=== PATIENT | female | born 1965 | race American Indian/Alaskan Native ===

== ENCOUNTER 2017-02-08 00:07 | Emergency (ER) | payer MEDICARE, OTHER ==
[2017-02-08] MEDS ORDERED: Morphine 4 MG/ML Syringe IVPUSH ONE (00:56)
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
[2017-02-08] MEDS ORDERED: Morphine 4 MG/ML Syringe ONE (00:58)
[2017-02-08] MEDS ORDERED: Acetaminophen/oxyCODONE 325-5 MG Tab PO ONE (01:02)
[2017-02-08 01:09] LABS: SODIUM,NA 137 mmol/L (135-145)
[2017-02-08 01:10] LABS: CHLORIDE,CL 96 mmol/L (101-111)
[2017-02-08 02:10] VITALS: BP 150/55
--- NOTE | 2017-02-08 14:16 | EKG ---
02/08/2017 - ERAN GUNTER I reviewed the EKG and agree with the machine's reading. [facility] /[id number]
== END 2017-02-08 02:36 ==
LOC: DL.ED 00:07
DX: S06.5X0A Traumatic subdural hemorrhage without loss of consciousness, initial encounter (principal); S42.021A Displaced fracture of shaft of right clavicle, initial encounter for closed fracture; S22.42XA Multiple fractures of ribs, left side, initial encounter for closed fracture; S00.83XA Contusion of other part of head, initial encounter; S30.810A Abrasion of lower back and pelvis, initial encounter; I13.0 Hypertensive heart and chronic kidney disease with heart failure and stage 1 through stage 4 chronic kidney disease, or unspecified chronic kidney disease; N18.9 Chronic kidney disease, unspecified; I50.9 Heart failure, unspecified; I25.10 Atherosclerotic heart disease of native coronary artery without angina pectoris; E78.00 Pure hypercholesterolemia, unspecified; E11.40 Type 2 diabetes mellitus with diabetic neuropathy, unspecified; E66.9 Obesity, unspecified; E11.22 Type 2 diabetes mellitus with diabetic chronic kidney disease; X58.XXXA Exposure to other specified factors, initial encounter; V89.2XXA Person injured in unspecified motor-vehicle accident, traffic, initial encounter; Z79.82 Long term (current) use of aspirin; Z79.4 Long term (current) use of insulin; Z86.2 Personal history of diseases of the blood and blood-forming organs and certain disorders involving the immune mechanism
CPT/HCPCS: 36415; 70450; 71010; 71250; 72125; 73000; 74176; 80053; 82150; 82553; 83690; 83880; 84484; 85025; 85610; 93005; 99285; A9270

== ENCOUNTER 2017-02-15 10:38 | Emergency (ER) | payer MEDICAID, MEDICARE ==
[2017-02-15 11:50] VITALS: BP 116/53
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
== END 2017-02-15 13:21 | disposition home or self-care (01) ==
LOC: DL.ED 10:38
DX: I13.2 Hypertensive heart and chronic kidney disease with heart failure and with stage 5 chronic kidney disease, or end stage renal disease (principal); E11.22 Type 2 diabetes mellitus with diabetic chronic kidney disease; N18.6 End stage renal disease; D63.1 Anemia in chronic kidney disease; I50.9 Heart failure, unspecified; N18.9 Chronic kidney disease, unspecified; E11.40 Type 2 diabetes mellitus with diabetic neuropathy, unspecified; E78.00 Pure hypercholesterolemia, unspecified; I25.10 Atherosclerotic heart disease of native coronary artery without angina pectoris; E11.21 Type 2 diabetes mellitus with diabetic nephropathy; Z79.82 Long term (current) use of aspirin; Z79.899 Other long term (current) drug therapy; Z79.4 Long term (current) use of insulin; Z95.1 Presence of aortocoronary bypass graft
CPT/HCPCS: 36415; 74176; 80053; 85025; 99284

== ENCOUNTER 2017-08-30 11:27 | Emergency (ER) | payer MEDICARE, OTHER ==
[2017-08-30 11:37] VITALS: BP 157/60
--- NOTE | 2017-08-30 11:42 | EDM.PDOC ---
ED HPI GENERAL MEDICAL PROBLEM - General Chief Complaint: Respiratory Problem Stated Complaint: CAME FROM DIALYSIS DOESNT FEEL GOOD, COUGH Time Seen by Provider: 08/30/17 11:42 Source of Information: Reports: Patient, Old Records, RN, RN Notes Reviewed History Limitations: Reports: No Limitations - History of Present Illness INITIAL COMMENTS - FREE TEXT/NARRATIVE: Pt c/o dry cough x1 week. Denies fever, chills, headache, edema, orthopnea, chest pain, shortness of breath, or wheezing. Admits to mild sore throat that developed after several days of coughing. Pt had a full run of dialysis this morning, and states that in dialysis the checked and she does not have fluid overload, was afebrile, and had clear lung sounds. Pt states that she otherwise feels well, but just isn't getting over this annoying cough. 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: Other Medication(s) (over the counter cough syrup) Headache Pain Score (Numeric/FACES): 5 - Related Data Allergies Allergy/AdvReac Type Severity Reaction Status Date / Time No Known Allergies Allergy Verified 08/30/17 11:34 Home Meds: Home Meds Aspirin [Adult Low Dose Aspirin EC] 81 mg PO DAILY 12/15/14 [History] Calcium Acetate [PhosLo] 2,001 mg PO TIDMEALS 12/16/14 [History] Cholecalciferol (Vitamin D3) [Vitamin D] 1,000 units PO DAILY 12/16/14 [History] Insulin Aspart [NovoLOG] 5 units INJECT TIDMEALS 12/16/14 [History] Lisinopril 20 mg PO DAILY 12/16/14 [History] Metoprolol Succinate 150 mg PO DAILY 12/16/14 [History] atorvaSTATin [Lipitor] 20 mg PO DAILY 12/16/14 [History] Acetaminophen [Acetaminophen Extra Strength] 500 mg PO Q6H PRN 05/04/16 [History ] B Complex & C No.20/Folic Acid [Nephrocaps Softgel] 1 mg PO DAILY 05/04/16 [ History] Furosemide 160 mg PO BID 05/04/16 [History] Isosorbide Mononitrate [Imdur] 60 mg PO BID 05/04/16 [History] NIFEdipine [Adalat cc] 60 mg PO DAILY 05/04/16 [History] hydrALAZINE [Apresoline] 150 mg PO BID 05/04/16 [History] Past Medical History HEENT History: Reports: None, Cataract, Impaired Vision Cardiovascular History: Reports: CAD, Heart Failure, High Cholesterol, Hypertension, PTCA, PVD, SOB on Exertion, Stents Respiratory History: Reports: None Gastrointestinal History: Reports: None Genitourinary History: Reports: Chronic Renal Insuffiency, Dialysis, Diabetic Nephropathy, Renal Disease 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 Musculoskeletal History: Reports: None Neurological History: Reports: Neuropathy, Diabetic Psychiatric History: Reports: None Endocrine/Metabolic History: Reports: Diabetes, Type II, IDDM, Obesity/BMI 30+ Hematologic History: Reports: Anemia Dermatologic History: Reports: None - Past Surgical History HEENT Surgical History: Reports: Cataract Surgery Cardiovascular Surgical History: Reports: None, Coronary Artery Bypass, Coronary Artery Stent Social & Family History - Family History Family Medical History: Noncontributory HEENT: Reports: Glaucoma Cardiac: Reports: Afib, Blood Clots/VTE/DVT, Bypass, CAD, Cardiomyopathy, Heart Failure, High Cholesterol, Hypertension, [place], PVD/COD, SOB on Exertion Respiratory: Reports: Asthma, COPD GI: Reports: Cholelithiasis : Reports: Diabetic Nephropathy, Dialysis, Renal Calculus, Renal Disease/ Insufficiency Neurological: Reports: CVA Endocrine/Metabolic: Reports: Diabetes, type II, Obesity/MBI 30+ Hematologic: Reports: Anemia - Tobacco Use Smoking Status *Q: Former Smoker Years of Tobacco use: 3 Packs/Tins Daily: 1 Used Tobacco, but Quit: Yes Month/Year Tobacco Last Used: 01/2016 Second Hand Smoke Exposure: No - Caffeine Use Caffeine Use: Reports: Coffee, Soda - Recreational Drug Use Recreational Drug Use: No - Living Situation & Occupation Living situation: Reports: Occupation: Disabled ED ROS GENERAL - Review of Systems Review Of Systems: ROS reveals no pertinent complaints other than HPI. ED EXAM, GENERAL - Physical Exam Exam: See Below Exam Limited By: No Limitations General Appearance: Alert, WD/WN, No Apparent Distress, Obese, Other ( chronically ill appearing) Eye Exam: Bilateral Eye: Normal Inspection Ears: Normal External Exam, Normal Canal, Hearing Grossly Normal, Normal TMs Nose: Normal Inspection, Normal Mucosa, No Blood Throat/Mouth: Normal Inspection, Normal Lips, Normal Oropharynx, Normal Voice, No Airway Compromise Head: Atraumatic, Normocephalic Neck: Normal Inspection, Supple, Non-Tender, Full Range of Motion. No: Lymphadenopathy (L), Lymphadenopathy (R) Respiratory/Chest: No Respiratory Distress, Lungs Clear, Normal Breath Sounds, No Accessory Muscle Use, Chest Non-Tender, Other (dry cough). No: Crackles, Rales, Rhonchi, Wheezing, Stridor, Splinting Cardiovascular: Regular Rate, Rhythm, No Edema, No JVD GI/Abdominal: Other (benign obese abdomen) Back Exam: Normal Inspection Extremities: Normal Inspection, Non-Tender, No Pedal Edema Neurological: Alert, Oriented, CN II-XII Intact, Normal Cognition, Normal Gait, No Motor/Sensory Deficits Psychiatric: Normal Affect, Normal Mood Skin Exam: Warm, Dry, Intact, Normal Color, No Rash Course - Vital Signs Last Recorded V/S: Last Vital Signs Temp 36.4 C 08/30/17 11:37 Pulse 81 08/30/17 11:37 Resp 20 08/30/17 11:37 BP 157/60 H 08/30/17 11:37 Pulse Ox 99 08/30/17 11:37 - Orders/Labs/Meds Orders: Active Orders 24 hr Category Date Time Status Chest 2V [CR] Stat Exams 08/30/17 11:45 Taken Meds: Medications Discontinued Medications Generic Name Dose Route Start Last Admin Trade Name Freq PRN Reason Stop Dose Admin Benzonatate 200 mg 08/30/17 11:46 Tessalon Perles PO 08/30/17 11:47 ONETIME ONE - Radiology Interpretation Free Text/Narrative:: CXR: no acute process; see Rad. report. Departure - Departure Time of Disposition: 12:35 Disposition: Home, Self-Care 01 Condition: Good Clinical Impression: Acute bronchitis Qualifiers: Bronchitis organism: unspecified organism Qualified Code(s): J20.9 - Acute bronchitis, unspecified - Discharge Information Instructions: Acute Bronchitis, Adult, [id number] Forms: ED Department Discharge Additional Instructions: Rx: Tessalon Perles 100mg Rx: Amoxicillin 500mg Follow up in clinic if not improving in 3 to 4 days. Return to ER if worse at any time. - My Orders Last 24 Hours: My Active Orders 08/30/17 11:45 Chest 2V [CR] Stat - Assessment/Plan Last 24 Hours: My Active Orders 08/30/17 11:45 Chest 2V [CR] Stat
[2017-08-30] MEDS ORDERED: Benzonatate 100 MG Cap PO ONE (11:46)
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
== END 2017-08-30 12:59 | disposition home or self-care (01) ==
LOC: DL.ED 11:27
DX: J20.9 Acute bronchitis, unspecified (principal); E66.9 Obesity, unspecified; I13.0 Hypertensive heart and chronic kidney disease with heart failure and stage 1 through stage 4 chronic kidney disease, or unspecified chronic kidney disease; I50.9 Heart failure, unspecified; N18.9 Chronic kidney disease, unspecified; E11.22 Type 2 diabetes mellitus with diabetic chronic kidney disease; E11.21 Type 2 diabetes mellitus with diabetic nephropathy; Z87.891 Personal history of nicotine dependence; Z79.82 Long term (current) use of aspirin; Z79.899 Other long term (current) drug therapy
CPT/HCPCS: 71046; 99283; 99284; A9270

== ENCOUNTER → 2017-10-01 | Day surgery (SDC) | payer MEDICARE, OTHER ==
[~2017-10-01] MED LIST: Dextrose 5%-0.45% NaCl 1,000 ML IV SCH; Midazolam 1 MG/ML 2 ML SDV IV ONE; Midazolam 1 MG/ML 2 ML SDV ONE; Sodium Chloride 0.9% 10 ML Syringe FLUSH PRN; fentaNYL 100 MCG/2 ML SDV IV ONE; fentaNYL 100 MCG/2 ML SDV ONE
--- NOTE | 2017-10-01 08:32 | OR ---
DATE: 10/01/2017 PROCEDURE PERFORMED: Total colonoscopy. INSTRUMENT USED: PCF-H180AL Olympus videocolonoscope. PREMEDICATIONS: Fentanyl 100 mcg intravenous and Versed 3.5 mg intravenous. Nasal O2 cannula. The procedure was done under pulse oximetry, BP recording, and sanitary chemist. INDICATION: Screening colonoscopic examination is done for detection of any polypoid lesions and removal, endoscopic hemostasis therapy if needed. DESCRIPTION OF PROCEDURE: Initial rectal exam showed external hemorrhoidal tags. Rigid anoscopy was normal. The colonoscope was passed with ease. Few scattered diverticula were noted in the distal left colon along with some deformity. The scope was passed with ease up to the ileocecal area, photographs were taken of the normal-appearing cecum identified by appendiceal orifice and double-bulged ileocecal folds. No bleeding was noted from any of the visualized areas at the commencement of the examination. No stricture. No vascular ectasia. No large isolated ulcerations seen. No evidence of diffuse inflammatory bowel disease in the form of friability, contact bleeding, or ulcerations. No polyp or tumor mass identified. Probing the proximal sides of folds and flexures, using adequate distention and clearing of the stool material, withdrawal of the scope was made, cecum to rectum time over 6 minutes. No bleeding was noted from any of the visualized areas at the completion of the examination. IMPRESSION: 1. External hemorrhoids. 2. Diverticulosis. The patient tolerated the procedure well. [facility] /[id number]
[2017-10-01 10:44] VITALS: BP 145/55
--- NOTE | 2017-10-01 13:23 | LETTER ---
10/01/2017 Danny Pereira MD [facility] [address] [place] [address] RE: SESAYCHENGKARISHMAJANET HOROWITZ : [address] Pereira: Ms. Karishma Sesay had colonoscopic examination done this morning and she tolerated the procedure well. I herewith send a copy of the endoscopy note and photographs for your review. Thank you. Sincerely, [facility] /[id number]
== END ==
LOC: DL.ENDO 06:18
PROVIDERS: ATTEND Internal Medicine Gastroenterology
DX: Z12.11 Encounter for screening for malignant neoplasm of colon (principal); K57.30 Diverticulosis of large intestine without perforation or abscess without bleeding; K64.4 Residual hemorrhoidal skin tags; I25.10 Atherosclerotic heart disease of native coronary artery without angina pectoris; I12.9 Hypertensive chronic kidney disease with stage 1 through stage 4 chronic kidney disease, or unspecified chronic kidney disease; E11.22 Type 2 diabetes mellitus with diabetic chronic kidney disease; N18.6 End stage renal disease; D63.1 Anemia in chronic kidney disease; D50.9 Iron deficiency anemia, unspecified; N25.81 Secondary hyperparathyroidism of renal origin; E66.09 Other obesity due to excess calories; Z68.31 Body mass index [BMI] 31.0-31.9, adult; Z79.82 Long term (current) use of aspirin; Z79.4 Long term (current) use of insulin; Z79.899 Other long term (current) drug therapy; Z95.1 Presence of aortocoronary bypass graft; Z99.2 Dependence on renal dialysis
CPT/HCPCS: G0121; J2250; J3010; J7042

== ENCOUNTER 2018-09-09 10:53 | Emergency (ER) | payer MEDICARE, MEDICAID ==
--- NOTE | 2018-09-09 13:20 | EDM.PDOC ---
ED HPI GENERAL MEDICAL PROBLEM - General Chief Complaint: Lower Extremity Injury/Pain Stated Complaint: RIGHT LEG REALLY HURTS [id number] Time Seen by Provider: 09/09/18 13:15 Source of Information: Reports: Patient History Limitations: Reports: No Limitations - History of Present Illness INITIAL COMMENTS - FREE TEXT/NARRATIVE: This 53 yo female reports to the ED with right hip pain and bruising. The patient reports she had an angiogram last week and has noticed increased bruising and pain in her right hip since that time. Th patient reports she attempted to be seen at the [facility], but they were closed. The patient also attempted to be seen in the [facility], but they reported no openings and her provider was out this week. The patient reports she has been taking Tylenol, but has not had much symptom improvement. 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 Right Upper Leg Pain Score (Numeric/FACES): 10 - Related Data Allergies Allergy/AdvReac Type Severity Reaction Status Date / Time No Known Allergies Allergy Verified 09/09/18 11:26 Home Meds: Home Meds Aspirin [Adult Low Dose Aspirin EC] 81 mg PO DAILY 12/15/14 [History] Calcium Acetate [PhosLo] 2,001 mg PO TIDMEALS 12/16/14 [History] Cholecalciferol (Vitamin D3) [Vitamin D] 1,000 units PO DAILY 12/16/14 [History] Insulin Aspart [NovoLOG] 5 - 10 units INJECT TIDMEALS 12/16/14 [History] Lisinopril 20 mg PO DAILY 12/16/14 [History] Metoprolol Succinate 150 mg PO DAILY 12/16/14 [History] atorvaSTATin [Lipitor] 20 mg PO BEDTIME 12/16/14 [History] Acetaminophen [Acetaminophen Extra Strength] 500 mg PO Q6H PRN 05/04/16 [History ] B Complex W-C No.20/Folic Acid [Nephrocaps Softgel] 1 mg PO DAILY 05/04/16 [ History] Furosemide 160 mg PO DAILY 05/04/16 [History] Isosorbide Mononitrate [Imdur] 60 mg PO BID 05/04/16 [History] NIFEdipine [Adalat cc] 30 mg PO DAILY 05/04/16 [History] hydrALAZINE [Apresoline] 150 mg PO BID 05/04/16 [History] Past Medical History HEENT History: Reports: None, Cataract, Impaired Vision Cardiovascular History: Reports: CAD, Heart Failure, High Cholesterol, Hypertension, PTCA, PVD, SOB on Exertion, Stents Respiratory History: Reports: None Gastrointestinal History: Reports: None Genitourinary History: Reports: Chronic Renal Insuffiency, Dialysis, Diabetic Nephropathy, 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 Musculoskeletal History: Reports: None Neurological History: Reports: Neuropathy, Diabetic Psychiatric History: Reports: None Endocrine/Metabolic History: Reports: Diabetes, Type II, IDDM, Obesity/BMI 30+ Hematologic History: Reports: Anemia Immunologic History: Reports: None Oncologic (Cancer) History: Reports: None Dermatologic History: Reports: None - Infectious Disease History Infectious Disease History: Reports: Chicken Pox - Past Surgical History HEENT Surgical History: Reports: Cataract Surgery Cardiovascular Surgical History: Reports: None, Coronary Artery Bypass, Coronary Artery Stent Respiratory Surgical History: Reports: None GI Surgical History: Reports: None Female Surgical History: Reports: None Endocrine Surgical History: Reports: None Neurological Surgical History: Reports: None Musculoskeletal Surgical History: Reports: None Dermatological Surgical History: Reports: None Social & Family History - Family History Family Medical History: Noncontributory HEENT: Reports: Glaucoma Cardiac: Reports: Afib, Blood Clots/VTE/DVT, Bypass, CAD, Cardiomyopathy, Heart Failure, High Cholesterol, Hypertension, [place], PVD/COD, SOB on Exertion Respiratory: Reports: Asthma, COPD GI: Reports: Cholelithiasis : Reports: Diabetic Nephropathy, Dialysis, Renal Calculus, Renal Disease/ Insufficiency Neurological: Reports: CVA Endocrine/Metabolic: Reports: Diabetes, type II, Obesity/MBI 30+ Hematologic: Reports: Anemia - Tobacco Use Smoking Status *Q: Former Smoker Used Tobacco, but Quit: Yes Month/Year Tobacco Last Used: ? - Caffeine Use Caffeine Use: Reports: None - Recreational Drug Use Recreational Drug Use: No - Living Situation & Occupation Living situation: Reports: Occupation: Disabled Review of Systems - Review of Systems Review Of Systems: ROS reveals no pertinent complaints other than HPI. ED EXAM, GENERAL - Physical Exam Exam: See Below Exam Limited By: No Limitations General Appearance: Alert, WD/WN, Moderate Distress Eye Exam: Bilateral Eye: EOMI, Normal Inspection, PERRL Ears: Normal External Exam, Normal Canal, Hearing Grossly Normal, Normal TMs Nose: Normal Inspection, Normal Mucosa, No Blood Throat/Mouth: Normal Inspection, Normal Lips, Normal Teeth, Normal Gums, Normal Oropharynx, Normal Voice, No Airway Compromise Head: Atraumatic, Normocephalic Neck: Normal Inspection, Supple, Non-Tender, Full Range of Motion Respiratory/Chest: No Respiratory Distress, Lungs Clear, Normal Breath Sounds, No Accessory Muscle Use, Chest Non-Tender Cardiovascular: Normal Peripheral Pulses, Regular Rate, Rhythm, No Edema, No Gallop, No JVD, No Murmur, No Rub GI/Abdominal: Normal Bowel Sounds, Soft, Non-Tender, No Organomegaly, No Distention, No Abnormal Bruit, No Mass (Female) Exam: Deferred Rectal (Female) Exam: Deferred Back Exam: Normal Inspection, Full Range of Motion, NT Extremities: Other (bruising in the right hip near angio insertion site) Neurological: Alert, Oriented, CN II-XII Intact, Normal Cognition, Normal Gait, Normal Reflexes, No Motor/Sensory Deficits Psychiatric: Normal Affect, Normal Mood Skin Exam: Warm, Dry, Intact, Normal Color, No Rash Lymphatic: No Adenopathy Course - Vital Signs Last Recorded V/S: Last Vital Signs Temp 36.1 C 09/09/18 11:31 Pulse 64 09/09/18 11:31 Resp 18 09/09/18 11:31 BP 160/48 H 09/09/18 11:31 Pulse Ox 96 09/09/18 11:31 Departure - Departure Time of Disposition: 13:18 Disposition: Home, Self-Care 01 Condition: Fair Clinical Impression: Hematoma of right hip Qualifiers: Encounter type: initial encounter Qualified Code(s): S70.01XA - Contusion of right hip, initial encounter - Discharge Information *PRESCRIPTION DRUG MONITORING PROGRAM REVIEWED*: Not Applicable *COPY OF PRESCRIPTION DRUG MONITORING REPORT IN PATIENT KAVITHA: Not Applicable Forms: ED Department Discharge Care Plan Goals: The patient was advised of the examination results during the visit. The patient was encouraged to alternate between an ice pack and warm pack to increase the absorption of the bruise. If the patient has any additional symptoms or concerns, the patient should either return to the emergency department or visit her primary care facility.
== END 2018-09-09 13:21 | disposition home or self-care (01) ==
LOC: DL.ED 10:53
CPT/HCPCS: 99282; 99283

== ENCOUNTER 2022-08-19 11:55 | Emergency (ER) | payer MEDICARE, MEDICAID ==
[2022-08-19] MEDS ORDERED: Clindamycin HCl 150 MG Cap PO ONE ×2 (11:56→12:51)
[2022-08-19] MEDS ORDERED: Clindamycin HCl 150 MG Cap ONE (13:06)
[2022-08-19 13:28] VITALS: BP 159/55; PULSE 84
== END 2022-08-19 13:22 | disposition home or self-care (01) ==
LOC: DL.ED 11:55
DX: E11.621 Type 2 diabetes mellitus with foot ulcer (principal); L97.519 Non-pressure chronic ulcer of other part of right foot with unspecified severity; L03.115 Cellulitis of right lower limb; I25.810 Atherosclerosis of coronary artery bypass graft(s) without angina pectoris; I13.2 Hypertensive heart and chronic kidney disease with heart failure and with stage 5 chronic kidney disease, or end stage renal disease; E11.22 Type 2 diabetes mellitus with diabetic chronic kidney disease; N18.6 End stage renal disease; I50.9 Heart failure, unspecified; Z99.2 Dependence on renal dialysis; E11.21 Type 2 diabetes mellitus with diabetic nephropathy; E11.40 Type 2 diabetes mellitus with diabetic neuropathy, unspecified; E66.9 Obesity, unspecified; Z86.16 Personal history of COVID-19; Z79.82 Long term (current) use of aspirin; Z79.4 Long term (current) use of insulin; Z79.899 Other long term (current) drug therapy
CPT/HCPCS: 36415; 80048; 85025; 99283; 99284; A9270-GY

== ENCOUNTER 2022-10-07 18:35 | Emergency (ER) | payer MEDICARE | END 2022-10-07 19:58 | disposition left against medical advice (07) | LOC: DL.ED 18:35 | DX: Z53.21 Procedure and treatment not carried out due to patient leaving prior to being seen by health care provider (principal) ==

== ENCOUNTER 2022-10-08 13:06 | Emergency (ER) | payer MEDICARE, MEDICAID ==
[2022-10-08 13:01] LABS: HEMATOCRIT 27.1 % (37.0-47.0); HEMOGLOBIN 8.4 g/dL (12.0-16.0); MEAN CORPUSCULAR HEMOGLOBIN 29.8 pg (27.0-34.0); MEAN CORPUSCULAR VOLUME 96.1 fL (80-100); PLATELET COUNT,PLT 331 10^3/uL (150-450); RED BLOOD CELL COUNT 2.82 10^6/uL (4.2-5.4); WHITE BLOOD CELL COUNT,WBC 16.1 10^3/uL (5.0-10.0)
[2022-10-08 13:06] VITALS: BP 99/48; PULSE 80
[~2022-10-08 13:06] MED LIST changes: -Dextrose 5%-0.45% NaCl 1,000 ML IV SCH; -Midazolam 1 MG/ML 2 ML SDV IV ONE; -Midazolam 1 MG/ML 2 ML SDV ONE; -fentaNYL 100 MCG/2 ML SDV IV ONE; -fentaNYL 100 MCG/2 ML SDV ONE
[2022-10-08 13:19] LABS: PROTHROMBIN TIME 10.4 SEC (9.0-12.0); PTT,PARTIAL THROMBOPLSTIN TIME 35.3 SEC (22.0-34.0)
[2022-10-08 13:26] LABS: LACTIC ACID 1.1 mmol/L (0.4-2.0)
[2022-10-08 13:27] LABS: BASOPHILS PERCENT AUTO 0.1 % (0.0-1.0); EOSINOPHILS PERCENT AUTO 0.4 % (1.0-3.0); LYMPHOCYTES PERCENT AUTO 4.1 % (20.5-50.1); MONOCYTES PERCENT AUTO 5.8 % (2-8); NEUTROPHILS PERCENT AUTO 89.6 % (42.2-75.2)
[2022-10-08 13:29] LABS: ALANINE AMINOTRANSFERASE,ALT 10 U/L (14-59); ALKALINE PHOSPHATASE 139 U/L (46-116); AMYLASE 18 U/L (25-115); ANION GAP 16.3 mEq/L (7-13); ASPARTATE AMNIOTRANSFERASE,AST 10 U/L (15-37); BILIRUBIN TOTAL 0.8 mg/dL (0.2-1.0); BLOOD UREA NITROGEN,BUN 44 mg/dL (7-18); BUN/CREATININE RATIO 14.2 (No establ ref range); CALCIUM 8.5 mg/dL (8.5-10.1); CARBON DIOXIDE,CO2 25 mmol/L (21-32); CHLORIDE,CL 99 mmol/L (98-107); CREATININE 3.09 mg/dL (0.55-1.02); EST CRCL DRUG DOSING (CG) 19.48 mL/min; GLUCOSE RANDOM 257 mg/dL (70-99); MAGNESIUM 1.8 mg/dL (1.8-2.4); POTASSIUM,K 4.3 mmol/L (3.5-5.1); PROTEIN TOTAL,TP 5.8 g/dL (6.4-8.2); SODIUM,NA 136 mmol/L (136-145)
[2022-10-08 13:31] LABS: APPEARANCE,URINE CLEAR (CLEAR); BILIRUBIN,URINE SMALL (NEGATIVE); COLOR,URINE YELLOW (YELLOW); GLUCOSE,URINE NEGATIVE (NEGATIVE); KETONES,URINE NEGATIVE (NEGATIVE); LEUKOCYTE ESTERASE,URINE NEGATIVE (NEGATIVE); NITRITE,URINE NEGATIVE (NEGATIVE); OCCULT BLOOD,URINE NEGATIVE (NEGATIVE); PH,URINE 6.5 (5.0-9.0); PROTEIN,URINE TRACE (NEGATIVE); UROBILINOGEN,URINE 0.2 mg/dL (0.2-1.0)
[2022-10-08] MEDS ORDERED: Ertapenem 1 GM Vial IVPUSH ONE (13:32)
[2022-10-08 13:34] LABS: BARBITURATES,URINE NEGATIVE (NEGATIVE); BENZODIAZEPINE,URINE NEGATIVE (NEGATIVE); MDMA (ECSTASY), URINE NEGATIVE (NEGATIVE); METHADONE,URINE NEGATIVE (NEGATIVE); METHAMPHETAMINES,URINE NEGATIVE (NEGATIVE); OPIATES,URINE NEGATIVE (NEGATIVE); PHENCYCLIDINE,URINE NEGATIVE (NEGATIVE); TCA,URINE NEGATIVE (NEGATIVE)
[2022-10-08 13:35] LABS: AMPHETAMINES,URINE NEGATIVE (NEGATIVE); OXYCODONE,URINE POSITIVE (NEGATIVE)
[2022-10-08 13:43] LABS: A/G RATIO 0.53; C-REACTIVE PROTEIN 26.6 mg/dL (0.0-0.9); ESTIMATED GFR 17 mL/min (>=60); ETHANOL BLOOD MEDICAL < 3 mg/dL (0); LIPASE < 10 U/L (73-393)
[2022-10-08 13:59] LABS: EPITHELIAL CELLS,URINE MODERATE /HPF (NOT SEEN); RBC,URINE 0-5 /HPF (0-5)
[2022-10-08 14:00] LABS: BAND PERCENT MAN 13 %; HYPOCHROMASIA 2+ MODERATE; LYMPHOCYTES PERCENT MAN 1 % (20-50); SEG NEUTROPHILS PERCENT MAN 86 % (42-75)
[2022-10-08 14:00] LABS: BACTERIA,URINE RARE /HPF (0-FEW/HPF); HYALINE CASTS,URINE FEW
[2022-10-08] MEDS ORDERED: Pantoprazole 80 MG in Sodium Chloride 0.9% 100 ML IV ONE (14:10)
== END 2022-10-08 14:58 ==
LOC: DL.ED 13:06
DX: K92.2 Gastrointestinal hemorrhage, unspecified (principal); I25.810 Atherosclerosis of coronary artery bypass graft(s) without angina pectoris; I13.0 Hypertensive heart and chronic kidney disease with heart failure and stage 1 through stage 4 chronic kidney disease, or unspecified chronic kidney disease; E11.22 Type 2 diabetes mellitus with diabetic chronic kidney disease; N18.9 Chronic kidney disease, unspecified; I50.9 Heart failure, unspecified; E11.21 Type 2 diabetes mellitus with diabetic nephropathy; E11.40 Type 2 diabetes mellitus with diabetic neuropathy, unspecified; E66.9 Obesity, unspecified; Z99.2 Dependence on renal dialysis; Z86.16 Personal history of COVID-19; Z79.82 Long term (current) use of aspirin; Z79.4 Long term (current) use of insulin; Z79.899 Other long term (current) drug therapy; Z68.22 Body mass index [BMI] 22.0-22.9, adult
CPT/HCPCS: 36415; 80053; 80305; 80307; 81001; 82150; 82272; 83605; 83690; 83735; 84145; 84484; 85025; 85610; 85730; 86140; 86850; 86900; 86901; 87040; 87045; 87046; 87070; 87899; 93005; 93010; 96365; 96375; 99285; C9113; J1335; J3490